=== PATIENT | female | born 1990 | race Hispanic/Latino ===

== ENCOUNTER 2020-02-09 18:14 | Inpatient (IN) | payer BC ==
[~2020-02-09] VITALS: Ht 160 cm; Wt 127.0 kg
[2020-02-09 18:39] VITALS: BP 109/65
[2020-02-09 18:59] LABS: APPEARANCE,URINE Clear (CLEAR); BILIRUBIN,URINE Negative (NEGATIVE); COLOR,URINE Yellow (YELLOW); GLUCOSE, URINE (UA) Negative (NEGATIVE); KETONES,URINE Trace mg/dL (NEGATIVE); LEUKOCYTE ESTERASE ,URINE Negative (NEGATIVE); NITRATE,URINE Negative (NEGATIVE); OCCULT BLOOD,URINE Negative (NEGATIVE); PROTEIN,URINE Trace mg/dL (NEGATIVE)
[2020-02-09 19:08] LABS: AMPHET/METH SCREEN,URINE NEGATIVE (NEGATIVE); BARBITURATE SCREEN, URINE NEGATIVE (NEGATIVE); BENZODIAZEPINES SCREEN,URINE NEGATIVE (NEGATIVE); CANNABINOID SCREEN,URINE NEGATIVE (NEGATIVE); COCAINE SCREEN,URINE NEGATIVE (NEGATIVE); OPIATE SCREEN,URINE NEGATIVE (NEGATIVE); PHENCYCLIDINE SCREEN,URINE NEGATIVE (NEGATIVE)
[2020-02-09 19:42] LABS: BACTERIA,URINE Few /HPF (None Seen); CALCIUM OXALATE CRYSTALS,UR Many /LPF (None Seen); MUCUS,URINE Few LPF (None Seen); RBC,URINE None Seen /HPF (0-1); WBC,URINE None Seen /HPF (0-1)
[2020-02-09] MEDS ORDERED: LACTATED RINGERS 1000ML IV PRN (20:00)
[2020-02-09] MEDS: LACTATED RINGERS 1000ML 1,000 ML IV SCH (21:10)
[2020-02-09] MEDS ORDERED: PREN1TAB80 PO (21:12)
[2020-02-10] MEDS: LACTATED RINGERS 1000ML 1,000 ML IV SCH (02:55)
[2020-02-10] MEDS ORDERED: ACETAMINOPHEN 325 MG TAB ONE ×2 (04:24)
[2020-02-10] MEDS ORDERED: ACETAMINOPHEN 325 MG TAB PO PRN ×2 (04:30)
[2020-02-10] MEDS ORDERED: CALDOLOR 800MG+NS 250ML 250 ML IV PRN (07:00)
[2020-02-10] MEDS ORDERED: LACTATED RINGERS 1000ML 1,000 ML IV SCH (07:00)
[2020-02-10] MEDS ORDERED: CEFAZOLIN SODIUM 1 GM VIAL IVP PRN (07:00)
[2020-02-10 07:03] LABS: HEMATOCRIT 35.8 % (36-48); MEAN CORPUSCULAR HEMOGLOBIN 29.4 pg (27.0-33.0); MEAN CORPUSCULAR HGB CONC 32.1 g/dL (32.0-36.0); MEAN CORPUSCULAR VOLUME 91.6 fL (79-99); PLATELET COUNT (AUTO) 184 K/uL (130-400); RED BLOOD CELL COUNT(AUTO) 3.91 MIL/uL (4.00-5.50); WHITE BLOOD COUNT (AUTO) 9.2 K/uL (4.8-10.8)
[2020-02-10 08:22] LABS: RAPID PLASMA REAGIN NONREACTIVE (NONREACTIVE)
[2020-02-10] MEDS ORDERED: DEXAMETHASONE SOD PHOSPHATE 10MG/ML 1ML VIAL ONE (09:49)
[2020-02-10] MEDS ORDERED: EPHEDRINE SULFATE 50 MG/ML AMPULE ONE (09:50)
[2020-02-10] MEDS ORDERED: DURAMORPH PF1 MG/ML 10ML AMP IV ONE (09:50)
[2020-02-10] MEDS ORDERED: OXYTOCIN 10 USP UNITS/ML ONE (09:50)
[2020-02-10] MEDS ORDERED: ONDANSETRON HCL 4 MG/2 ML VIAL ONE ×3 (09:50→16:56)
[2020-02-10] MEDS ORDERED: PHENYLEPHRINE HCL 10 MG/ML 1ML VIAL IV ONE (09:51)
[2020-02-10] MEDS ORDERED: CEFAZOLIN SODIUM 1 GM VIAL IVP ONE (09:55)
[2020-02-10] MEDS ORDERED: HYDROCODONE/ACETAMINOPHEN 5/325 MG TAB PO PRN (11:00)
[2020-02-10] MEDS ORDERED: DEXTROSE 5 %-0.45 % NACL 1,000 ML IV PRN (11:00)
[2020-02-10] MEDS ORDERED: SODIUM CHLORIDE 0.9% 10 ML VIAL IVP PRN (11:00)
[2020-02-10] MEDS ORDERED: MEPERIDINE-PF 75 MG/ML SYG IM PRN (11:00)
[2020-02-10] MEDS ORDERED: OXYTOCIN-LR 20 UNITS/1000 ML 1,000 ML IV PRN (11:00)
[2020-02-10] MEDS ORDERED: DIPH,PERTUSS(ACELL),TET VAC/PF 0.5 ML VIAL IM SCH (11:00)
[2020-02-10] MEDS ORDERED: ACETAMINOPHEN EXTRA STRENGTH 500 MG TABLET PO PRN (11:00)
[2020-02-10] MEDS ORDERED: ACETAMINOPHEN-CODEINE 300/30MG TAB PO PRN (11:00)
[2020-02-10] MEDS ORDERED: MEASLES/MUMPS/RUBELLA VACCINE, LIVE 0.5 ML/VIAL SQ SCH (11:00)
[2020-02-10] MEDS ORDERED: BISACODYL 10 MG SUPP.RECT RC PRN (11:00)
[2020-02-10] MEDS ORDERED: DIPHENHYDRAMINE HCL 25 MG CAPSULE PO PRN (11:00)
[2020-02-10] MEDS ORDERED: LANOLIN 30GM OINTMENT TP PRN (11:00)
[2020-02-10] MEDS ORDERED: PROMETHAZINE HCL 25 MG/ML 1ML AMPULE IM PRN (11:00)
[2020-02-10] MEDS ORDERED: IBUPROFEN 800 MG TAB PO SCH (11:00)
[2020-02-10 13:55] VITALS: BP 109/60
[2020-02-10] MEDS: CALDOLOR 800MG+NS 250ML 250 ML IV SCH (18:01)
[2020-02-10] MEDS: SIMETHICONE 80 MG TAB.CHEW PO PRN (20:19)
[2020-02-10] MEDS: DOCUSATE SODIUM 100 MG CAP PO SCH (20:20)
[2020-02-10 20:40] VITALS: BP 95/49
--- NOTE | 2020-02-10 22:17 | NUR ---
MASK Patient instructed to wear mask in presence of others as per order for universal masking amid the COVID-19 pandemic. Addendum: 02/10/20 at 2219 by REYNALDO VELEZ RN RN Amended: Links added.
[2020-02-11] VITALS: BP 98/58
[2020-02-11] MEDS: CALDOLOR 800MG+NS 250ML 250 ML IV SCH (01:57)
[2020-02-11 04:42] VITALS: BP 87/40
[2020-02-11 07:05] LABS: HEMATOCRIT 33.8 % (36-48); MEAN CORPUSCULAR HEMOGLOBIN 29.2 pg (27.0-33.0); MEAN CORPUSCULAR HGB CONC 31.7 g/dL (32.0-36.0); MEAN CORPUSCULAR VOLUME 92.1 fL (79-99); PLATELET COUNT (AUTO) 196 K/uL (130-400); RED BLOOD CELL COUNT(AUTO) 3.67 MIL/uL (4.00-5.50); RED CELL DISTRIBUTION WIDTH 12.9 % (11.0-15.5)
[2020-02-11 07:30] VITALS: BP 103/64
--- NOTE | 2020-02-11 07:30 | NUR ---
AM care Eva care done and gayle catheter discontinued. Abdominal binder placed. Patient tolerated well. Addendum: 02/11/20 at 0732 by REYNALDO VELEZ RN RN Amended: Links added.
[2020-02-11 08:13] LABS: HEPATITIS Bs ANTIGEN SCREEN P Negative (Negative)
[2020-02-11] MEDS: DOCUSATE SODIUM 100 MG CAP PO SCH (09:00)
[2020-02-11] MEDS ORDERED: LIDOCAINE 5% TOPICAL PATCH TP SCH (09:00)
[2020-02-11] MEDS: SIMETHICONE 80 MG TAB.CHEW PO PRN (10:17)
[2020-02-11 13:05] VITALS: BP 93/57
--- NOTE | 2020-02-11 13:20 | NUR ---
DISCHARGE PT LEFT UNIT VIA WHEELCHAIR, WITH BABY IN ARMS, ACCOMPANIED BY FAMILY. DENIED PAIN AND HAD NO COMPLAINTS. BABY STRAPPED IN CAR SEAT. PT AND BABY TRANSPORTED BY PERSONAL VEHICLE.
== END 2020-02-11 13:20 | disposition home or self-care (01) | DRG 788 ==
LOC: EDH 18:14 → OBSVTOIN 18:27 → LDH 18:27 → WSH 02-10 16:19 → UNDODISIN 02-11 11:05
PROVIDERS: ADMIT Obstetrics & Gynecology; ATTEND Obstetrics & Gynecology
PROC: 10D00Z1 Extraction of Products of Conception, Low, Open Approach (ICD-10-PCS; principal; 2020-02-10 09:30)
DX: O34.211 Maternal care for low transverse scar from previous cesarean delivery (principal); Z3A.38 38 weeks gestation of pregnancy; Z37.0 Single live birth; Z90.49 Acquired absence of other specified parts of digestive tract; O99.214 Obesity complicating childbirth; E66.9 Obesity, unspecified
CPT/HCPCS: 36415; 59510; 80305; 81001; 82948; 85027; 86592; 86701; 86850; 86900; 86901; 87340; 87390; 96360; 96361; A4344; G0378; J0690; J1100; J1741; J2274; J2370; J2405; J2590; J3490; J7042; J7120